=== PATIENT | male | born 1975 | race Caucasian/White ===

== ENCOUNTER 2023-11-19 12:09 | Emergency (ER) | payer MEDICAID, SELFPAY ==
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
[2023-11-19 12:25] VITALS: BP 140/80; PULSE 75; O2SAT 96
[2023-11-19 12:31] VITALS: BP 156/100; PULSE 71; RESP 16; TEMP 36.4; O2SAT 95; BMI 38.1
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
[2023-11-19 14:00] VITALS: BP 129/77; PULSE 55; RESP 14; O2SAT 93
== END 2023-11-20 07:02 | disposition home or self-care (01) ==
PROVIDERS: Emergency Provider Emergency Medicine Emergency Medical Services
DX: S09.90XA Unspecified injury of head, initial encounter (principal); S16.1XXA Strain of muscle, fascia and tendon at neck level, initial encounter; V73.6XXA Passenger on bus injured in collision with car, pick-up truck or van in traffic accident, initial encounter; M25.571 Pain in right ankle and joints of right foot; Y93.89 Activity, other specified; Y92.414 Local residential or business street as the place of occurrence of the external cause; Y99.9 Unspecified external cause status
CPT/HCPCS: 70450; 72125; 73610; 99284

== ENCOUNTER 2024-02-03 15:22 | Outpatient (REF) | payer MEDICAID, SELFPAY ==
[2024-02-03 17:10] LABS: Alanine Aminotransferase 12 U/L (0-40); Albumin Level 4.7 g/dL (3.5-5.0); Alkaline Phosphatase 94 U/L (39-117); Aspartate Amino Transferase 21 U/L (5-37); Bilirubin Direct 0.1 mg/dL (0.0-0.5); Bilirubin Total 0.3 mg/dL (0.0-1.0); Total Protein 8.4 g/dL (6.5-8.0)
[2024-02-04 04:42] LABS: HBc Num1 4.66 S/CO (0.00-0.79); HIV AB/AG Nonreactive (Nonreactive); HIV Num 1 0.05 S/CO (0.00-0.99); ~HepC Num1 14.62 S/CO (0.00-0.79); ~Hepatitis C Antibody Reactive (Nonreactive)
[2024-02-04 04:48] LABS: HBS Num1 59.09 mIU/mL (0-7.99); HBsAGNum1 0.39 S/CO (0.00-0.99); Hepatitis B Surface Antigen Negative (Negative); ~Hepatitis B Surface Antibody REACTIVE (Nonreactive)
[2024-02-04 04:50] LABS: Hepatitis A Antibody IgG REACTIVE (Nonreactive); ~Hepatitis A Antibody IgG 8.84 S/CO (0.00-0.99)
[2024-02-04 06:19] LABS: HBc Num2 4.84 S/CO
[2024-02-04 06:20] LABS: HBc Num3 4.73 S/CO; Hepatitis B Core Antibody Reactive (Nonreactive)
[2024-02-05 15:43] LABS: RPR Rapid Plasma Reagin NON-REACTIVE (NON-REACTIVE)
[2024-02-06 03:23] LABS: Hepatitis B Core Antibody IgM NON-REACTIVE (NON-REACTIVE)
[2024-02-06 10:33] LABS: HCV Log PCR <1.18 NOT DETECTED Log IU/mL (NOT DETECTED); HepC Viral Load <15 NOT DETECTED IU/mL (NOT DETECTED)
[2024-02-06 12:29] LABS: TS Negative Control Passed; TS Panel A 0; TS Panel B 0; TS Positive Control Passed; TSpotTB Negative (Negative)
== END 2024-02-03 15:23 | disposition home or self-care (01) ==
LOC: HO.HHCL 15:22
PROVIDERS: Family Medicine; Visit Provider Emergency Medicine
DX: Z86.19 Personal history of other infectious and parasitic diseases (principal); F11.20 Opioid dependence, uncomplicated
CPT/HCPCS: 36415; 80076; 86481; 86592; 86704; 86705; 86706; 86708; 86803; 87340; 87389; 87522

== ENCOUNTER 2025-04-12 13:24 | Outpatient (REF) | payer OTHER, SELFPAY ==
--- OUTSIDE RECORDS SUMMARY | 2025-04-12 13:00 | XMS_ITS | Encounter Summary ---
Author Organization [employer] Address [address] [place] [address] Care Team Providers Care Hotel Concierge Name Role Phone Sofi Arroyo MD Primary Care Provide r Reason for Visit * Reason Comments OBAT F/U Encounter Details Date Type Department Care Team (Latest Contact Info) Description 04/12/2025 1:00 PM EST Clinical Support [facility] [address], [place] [phone] Hayley Corona RN Uncomplicated opioid dependence (CMS/HCC) (HCC) (Primary Dx) Social History Tobacco Use Types Packs/Day Years Used Date Smoking Tobacco: Every Day Cigarettes Smokeless Tobacco: Never Alcohol Use Standard Drinks/Week Comments Not Currently 0 (1 standard drink = 0.6 oz pur e alcohol) Depression Answer Date Recorded Patient Health Questionnaire-9 Score 8 03/09/2025 Patient Health Questionnaire-9 Score 8 03/09/2025 Last PHQ-9: Questionnaire Data Not on file 1 05/09/2024 Housing Stability Answer Date Recorded What is your housing situation today? I do not have housing (Staying with others, in a hotel, in a intermediate, living outside on the street, on a beach, in a car, or in a park 02/03/[address] you li ve. Do you have problems with any of the following? None of the above 02/03/2023 Food Insecurity Answer Date Recorded Within the past 12 months, y ou worried that your food would run out before you got money to buy more: Never True 02/25/2023 Within the past 12 months,th e food you bought just didn't last and you didn't have enough money to get more: Never True Transportation Answer Date Recorded In the past 12 months, has l ack of transportation kept you from medical appts, meetings, work or from getting things needed for daily living? No 02/25/2023 Utilities Answer Date Recorded In the past 12 months, has t he electric, gas, oil or water company threatened to shut off services in your home? No 02/25/2023 Depression Answer Date Recorded Patient Health Questionnaire-2 Score 2 03/09/2025 Sex and Gender Information Value Date Recorded Sex Assigned at Male 07/12/2022 1:55 PM EDT Legal Sex Male 3:32 PM EST Gender Identity Male 07/12/2022 1:55 PM EDT Sexual Orientation Don't know 07/12/2022 1: 55 PM EDT documented as of this encounter Plan of Treatment Upcoming Encounters Date Type Department Care Team (Late st Contact Info) Description 04/18/2025 1:45 PM EST Telemedicine [facility] [address] [place] [id number] Sofi Arroyo MD [address] [place] [address] [phone] 07/05/2025 1:00 PM EDT Office Visit [facility] [address] [place] [phone] Destin Casey MD [address] [place] [address] [phone] Scheduled Orders Name Type Priority Associated Diagnoses Orde r Schedule Hepatitis C Antibody with Reflex to HCV, RNA, Quantitative, Real-Time PCR Lab Routine Uncomplicated opioid dependence (CMS/HCC) (HCC) Expected: 04/12/2025 (Approximate), Expires: 04/12/2026 documented as of this encounter Procedures Procedure Name Priority Date/Time Associated Diagnosis Comments POCT RIAN-14 URINE DRUG SCREEN Routine 04/12/2025 2:21 PM EST Uncomplicated opioid dependence (CMS/HCC) (HCC) documented in this encounter Results * (ABNORMAL) POCT RIAN-14 Urine Drug Screen (04/12/2025 2:21 PM EST) THC Negative Negative Cocaine Screen, Urine Negative(A) Negative Opiate Screen, Urine Negative(A) Negative Methamphetamine Screen Urine Negative Negative Amphetamine Screen, Urine Negative Negative Benzodiazepines Screen, Urine Negative Negative Barbiturate Screen, Urine Negative Negative Methadone Screen, Urine Negative Negative Buprenophine Screen, Urine Positive(A) Negative TCA, Urine Negative Negative MDMA Urine Negative Negative ng/mL Oxycodone Screen, Urine Negative Negative Fentanyl, Urine Negative(A) Negative Urine Urine specimen obtained by clean catch procedure / Unknown 04/12/2025 2:21 PM EST Destin Casey MD POINT OF CARE TEST ENTER/EDIT OR DERABLES Edited Result - Final documented in this encounter Visit Diagnoses Diagnosis Uncomplicated opioid dependence (CMS/HCC) (HCC)- Primary documented in this encounter Additional Health Concerns Assessment Noted Time PHQ-9 Depression Total Score: 8 03/09/20 1:05 PM EST documented as of this encounter Care Teams Hotel Concierge Relationship Specialty Start Date End Date Sofi Arroyo MD [address] [place] [phone] PCP - General Internal Medicine 12/01/24 documented as of this encounter
[2025-04-12 16:05] LABS: MANUAL DIFF FLAG NO
[2025-04-12 16:15] LABS: Hematocrit 41.6 % (42.0-52.0); Hemoglobin 14.2 g/dl (14.0-18.0); Imm Gran Abs Auto 0.04 X10*3/uL (0.00-0.03); Imm Gran Pct Auto 0.4 % (0.0-0.4); Lymphocytes Absolute Auto 2.6 X10*3/uL (1.2-4.9); Mean Corpuscular HGB Conc 34.1 g/dl (31.0-36.0); Mean Corpuscular Hemoglobin 29.5 pg (27.0-33.0); Mean Corpuscular Volume 86.3 fL (80.0-98.0); NRBC Abs Auto 0.000 X10*3/uL (0.0-0.012); NRBC Pct Auto 0.0 /100WBC (0.0-0.2); Platelet Count 244 X10*3/uL (160-400); Red Blood Count 4.82 X10*6/uL (4.60-5.80); White Blood Count 10.6 X10*3/uL (4.8-10.8)
[2025-04-12 16:50] LABS: Alanine Aminotransferase 20 U/L (0-40); Albumin Level 4.8 g/dL (3.5-5.0); Alkaline Phosphatase 76 U/L (39-117); Anion Gap 11 (12-20); Aspartate Amino Transferase 39 U/L (5-37); Blood Urea Nitrogen 20 mg/dL (9-16); Calcium 9.4 mg/dL (8.4-10.2); Carbon Dioxide 28 mmol/L (22-29); Chloride 103 mmol/L (96-108); Cholesterol 116 mg/dL (<200); Estimated Glomerular Filt Rate > 60; HDL Cholesterol 39 mg/dL (>40); Potassium 3.9 mmol/L (3.3-5.1); Sodium 138 mmol/L (135-145); Total Protein 7.6 g/dL (6.5-8.0); Triglycerides 89 mg/dL (<150)
--- OUTSIDE RECORDS SUMMARY | 2025-04-12 17:29 | XMS_ITS | Clinical Summary ---
Author Organization [employer] Address [address] [facility] [address] [place] [address] Care Team Providers Care Electronic Component Processor Name Role Phone Sofi Arroyo MD Primary Care Provide r Allergies No known active allergies Medications * This document contains information received from the source organization and may not represent a complete record from that organization. nicotine (Nicoderm CQ) 14 MG/24HR patch Place 1 patch on the skin 1 (one) time each day at the same time. 42 patch 1 01/19/20 25 Active nicotine (Nicoderm CQ) 7 MG/24HR patch Place 1 patch on the skin 1 (one) time each day at the same time. 14 patch 1 01/19/20 25 Active nicotine polacrilex (Commit) 4 MG lozenge Dissolve 1 lozenge (4 mg) in the mouth every 2 (two) hours if needed for smoking cessation. 100 lozenge 1 01/19/20 25 Active Suboxone 8-2 MG SL filmIndication s:Opioid type dependence, continuous (CMS/HCC) (HCC) Place 1 Film under the tongue 3 times daily. 84 Film 2 5 2:33 PM EST 04/05/20 25 026 Active Suboxone 8-2 MG SL filmIndication s:Opioid type dependence, continuous (CMS/HCC) (HCC) Place 1 Film under the tongue 3 times daily. 84 Film 2 5 4:26 PM EST 01/11/20 25 025 Discontinued(Re order (will not trigger notification to Pharmacy)) Active Problems Problem Noted Date Diagnosed Date Cigarette smoker 03/04/2025 History of substance abuse (CMS/HCC) 03/04/2025 History of hepatitis B 03/04/2025 Current mild episode of vita r depressive disorder without prior episode 02/10/2025 Assessment & Plan (02/10/2025 4:30 PM EDT): - Mild depressive symptoms present, patient does not wish to start medication at this time. - Referred to therapist for counseling. Therapist to contact patient after 3:00 PM for initial session. Vitamin D deficiency 02/10/2025 Assessment & Plan (02/10/2025 4:30 PM EDT): - Risk of vitamin D deficiency due to limited sunlight exposure in winter. - Recommended vitamin D3 supplementation, 1000 IU daily during winter. Will check vitamin D levels with upcoming blood tests and review results together by phone. Anxiety 02/03/2024 Edentulous 02/03/2024 Opioid dependence 11/05/2023 Assessment & Plan (02/10/2025 4:29 PM EDT): - Opioid dependence in remission, no current use for 3 years. - Ordered comprehensive blood tests to monitor overall health. Assessment & Plan (12/03/2023 10:48 AM EDT): - stage of change: maintenance stage - Utox review: pos bup - Overdose risk: high, risk factors include previously using mixed drugs intravenously, depression, and history of OD - Continue current recovery support - Continue current recovery effort - Reviewed harm reduction and overdose prevention Assessment & Plan (11/05/2023 11:07 AM EDT): - stage of change: maintenance stage - Utox review: pos bup - Overdose risk: high, risk factors include previously using mixed drugs intravenously, depression, and history of OD - Continue current recovery support - Continue current recovery effort - Reviewed harm reduction and overdose prevention Tobacco use disorder 11/05/2023 Assessment & Plan (02/10/2025 4:30 PM EDT): - Tobacco use disorder present, patient interested in cessation and has cessation medication available but not yet started. - Encouraged smoking cessation. Will follow up on progress. History of hepatitis C 11/05/2023 Assessment & Plan (11/05/2023 11:03 AM EDT): - treated in 2021 - most recent Hep C viral load negative in May 2023 Encounters * This document contains information received from the source organization and may not represent a complete record from that organization. Date Type Department Care Team Description 04/12/2025 1:00 PM EST Clinical Support [address] [address] Hayley Corona RN Uncomplicated opioid dependence (CMS/HCC) (HCC) (Primary Dx) 04/05/[address] [address] Hayley Corona RN Opioid type dependence, continuous (CMS/HCC) (HCC) 04/05/[address] [address] Destin Casey MD Opioid type dependence, continuous (CMS/HCC) (HCC) 02/10/2025 1:15 PM EDT Office Visit [address] [address] Sofi Arroyo MD Screening for colon cancer (Primary Dx); Uncomplicated opioid dependence (CMS/HCC) (HCC); Tobacco use disorder; Anxiety; Current mild episode of major depressive disorder without prior episode (CMS/HCC); Vitamin D deficiency 02/10/2025 Travel 02/09/[address] [address] Sofi Arroyo MD Chart Prep 02/02/2025 Patient Outreach [address] [address] Sofi Arroyo MD Pre-visit Planning ((Unable to reach for PVP screening, LVM) to be completed in office ) 01/18/2025 1:00 PM EDT Office Visit [address] [address] Destin Casey MD Uncomplicated opioid dependence (CMS/HCC) (Primary Dx); Tobacco use disorder 01/18/2025 Travel from Last 3 Months Family History Medical History Relation Name Comments HIV Father Diabetes type II Maternal Grandfather HIV Mother Relation Name Status Comments Father Maternal Grandfather Mother Social History Tobacco Use Types Packs/Day Years Used Date Smoking Tobacco: Every Day Cigarettes Smokeless Tobacco: Never Tobacco Cessation:Ready to Q uit: Not Asked; Counseling Given: Not Answered Alcohol Use Standard Drinks/Week Comments Not Currently [...] with others, in a hotel, in a snf, living outside on the street, on a [...] Don't know 07/12/2022 1: 55 PM EDT Last Filed Vital Signs Vital Sign Reading Time Taken Comments Blood Pressure 114/74 02/10/2025 1:06 PM EDT Pulse 76 02/10/2025 1:06 PM EDT Temperature 36.3 C (97.4 F) 02/10/2025 1:06 PM EDT Respiratory Rate 15 02/10/2025 1:06 PM EDT Oxygen Saturation 96% 02/10/2025 1:06 PM EDT Inhaled Oxygen Concentration - - Weight 73.9 kg (163 lb) 02/10/2025 1:06 PM EDT Height 180.3 cm (5' 11 ) 02/10/2025 1:06 PM EDT Body Mass Index 22.73 02/10/2025 1:06 PM EDT Plan of Treatment Upcoming Encounters Date Type Department Care Team (Late st Contact Info) Description 04/18/2025 1:45 PM EST Telemedicine [facility] [address] [place] [phone] Sofi Arroyo MD [address] [place], [place] [phone] 07/05/2025 1:00 PM EDT Office Visit [facility] [address] [place] [address] [phone] Destin Casey MD [address] [place], [place] [phone] Health Maintenance Due Date Last Done Comments CT Colonography 1975 Colonoscopy 1975 FIT 1975 Sigmoidoscopy 1975 Disability Screening 1975 Alcohol/Substance Use Screening 1987 Family Planning (PISQ) 06/30/1990 DTaP/Tdap/Td Vaccines (1 - Tdap) 06/30/1994 Pneumococcal Vaccine: Pediatrics (0 to 5 Years) and At-Risk Patients (6 to 49) Years (1 of 2 - PCV) 06/30/1994 SDOH Screening 07/13/2023 07/12/2022 COVID-19 Vaccine (1 - 2024-2 6 season) 2024 Influenza Vaccine (#1) 2024 Zoster Vaccines (1 of 2) 06/30/2025 Tobacco Screening 02/10/2026 02/10/2025 FOBT 02/24/2026 02/24/2025 Depression Screening 03/09/2026 03/09/2025, 03/09/2025 Colorectal Cancer Screening 02/25/2028 FIT DNA/Cologuard 02/25/2028 02/24/2025 Lipid Panel 04/12/2030 04/12/2025, 07/16/2022 RSV Patients and Patients Aged 60 years or older (1 - 1-dose 75+ series) 06/30/2050 HIV Screening Completed 02/03/2024, 07/16/2022 HIB Vaccines Aged Out No longer eligi ble based on patient's age to complete this topic HPV Vaccines Aged Out No longer eligi ble based on patient's age to complete this topic Hepatitis A Vaccines Discontinued Hepatitis B Vaccines Discontinued IPV Vaccines Aged Out No longer eligi ble based on patient's age to complete this topic Meningococcal B Vaccine Aged Out No l onger eligible based on patient's age to complete this topic Meningococcal Vaccine Aged Out No tiffanie peña eligible based on patient's age to complete this topic RSV under 20 months Aged Out No longe r eligible based on patient's age to complete this topic Rotavirus Vaccines Aged Out No longer eligible based on patient's age to complete this topic Procedures Procedure Name Priority Date/Time Associated Diagnosis Comments POCT RIAN-14 URINE DRUG SCREEN Routine 04/12/2025 2:21 PM EST Uncomplicated opioid dependence (CMS/HCC) (HCC) TSH W/REFLEX TO FT4 Routine 04/12/2025 1 :34 PM EST Uncomplicated opioid dependence (CMS/HCC) (HCC) Anxiety VITAMIN D,25-OH,TOTAL,IA Routine 04/12/2025 1:34 PM EST Uncomplicated opioid dependence (CMS/HCC) (HCC) LIPID PANEL, STANDARD Routine 04/12/2025 1:34 PM EST Uncomplicated opioid dependence (CMS/HCC) (HCC) HEMOGLOBIN A1C Routine 04/12/2025 1:34 PM EST Uncomplicated opioid dependence (CMS/HCC) (HCC) COMPREHENSIVE METABOLIC PANEL Routine 04/12/2025 1:34 PM EST Uncomplicated opioid dependence (CMS/HCC) (HCC) CBC WITH AUTO DIFFERENTIAL Routine 04/12/2025 1:34 PM EST Uncomplicated opioid dependence (CMS/HCC) (HCC) LAB COLOGUARD COLON CANCER SCREEN Routine 02/24/2025 3:50 AM EDT Screening for colon cancer HIV 1/2 ANTIGEN/ANTIBODY, FOURTH GENERATION W/RFL Routine 02/03/2024 3:23 PM EDT Opioid type dependence, continuous (CMS/HCC) from Last 3 Months or Most Recently Relevant to Health Maintenance Results * (ABNORMAL) POCT RIAN-14 Urine Drug [...] ENTER/EDIT OR DERABLES Edited Result - Final * Vitamin D, 25-Hydroxy, Total, Immunoassay (04/12/2025 1:34 PM EST) Vitamin D 25-OH Total 37.4 >30 ng/mL [facility] Comment: Health Based Reference Values*< 20 ng/mL Xxzlbjiab54-41 ng/mL Insufficient> 30 ng/mL Sufficient*Reese SHIPMAN. N Engl J Med. 2007;357:266-280There is no well-established upper level of normal vitamin Dlevels. Some laboratories use 50 ng/mL as an upper limit ofnormal. However, toxicity is patient-dependent and may occurat any level. Careful correlation with the patient'spresentation is necessary and, if there is concern forvitamin D toxicity, treatment should be consideredirrespective of the serum level.Care must be taken in interpreting Vitamin D results fromdifferent laboratories and methodologies. Published datademonstrated that results from patients undergoinghemodialysis may show a negative bias when tested withvarious automated 25-OH vitamin D assays when compared toLC-MS/MS.When testing samples from patients whose predominant form ofVitamin D is Vitamin D2, such as patients receiving VitaminD2 supplementation, results that are subtherapeutic shouldbe confirmed with another method such as LC-MS/MS. Blood Venous blood specimen / Unknown 04/12/2025 1:34 PM EST 04/12/2025 4:01 PM EST us Sofi Cheung MD LAB BLOOD ORDERABLES Final Result Performing Organization Address [facility]/ZIP Co de Phone Number [facility] [address] [place] [phone] * TSH with Reflex to Free T4 (04/12/2025 1:34 PM EST) TSH reflex Free T4 2.05 0.32 - 4.0 uIU/mL [facility] Blood Venous blood specimen / Unknown 04/12/2025 1:34 PM EST 04/12/2025 4:01 PM EST us Sofi Cheung MD LAB BLOOD ORDERABLES Final Result Performing Organization Address [facility]/ZIP Co de Phone Number [facility] [address] [place] [phone] * (ABNORMAL) CBC auto differential (04/12/2025 1:34 PM EST) White Blood Count 10.6 4.8 - 10.8 X10*3/uL [facility] Red Blood Count 4.82 4.60 - 5.80 X10*6/uL [facility] Hemoglobin 14.2 14.0 - 18.0 g/dl [facility] Hematocrit 41.6(L) 42.0 - 52.0 % [facility] Mean Corpuscular Volume 86.3 80.0 - 98.0 fL [facility] Mean Corpuscular Hemoglobin 29.5 27.0 - 33.0 pg [facility] Mean Corpuscular HGB Conc 34.1 31.0 - 36.0 g/dl [facility] Red Cell Distribution Width 13.0 11.0 - 16.0 % [facility] Platelet Count 244 160 - 400 X10*3/uL [facility] Mean Platelet Volume 10.8 9.4 - 12.4 fL [facility] Neutrophils Percent Auto 67.7 45 - 73 % [facility] Imm Gran Pct Auto 0.4 0.0 - 0.4 % [facility] Lymphocytes Percent Auto 24.5 20 - 40 % [facility] Monocytes Percent Auto 4.4 2 - 11 % [facility] Eosinophils Percent Auto 2.2 0 - 4 % [facility] Basophils Percent Auto 0.8 0 - 2 % [facility] NRBC Pct Auto 0.0 0.0 - 0.2 /100WBC [facility] Neutrophils Absolute Auto 7.2 2.0 - 8.3 x10*3/uL [facility] Imm Gran Abs Auto 0.04(H) 0.00 - 0.03 X10*3/uL [facility] Lymphocytes Absolute Auto 2.6 1.2 - 4.9 X10*3/uL [facility] Monocytes Absolute Auto 0.5 0.1 - 1.2 X10*3/uL [facility] Eosinophils Absolute Auto 0.2 0.0 - 0.4 X10*3/uL [facility] Basophils Absolute Auto 0.1 0.0 - 0.2 X10*3/uL [facility] NRBC Abs Auto 0.000 0.0 - 0.012 X10*3/uL [facility] Blood Venous blood specimen / Unknown 04/12/2025 1:34 PM EST 04/12/2025 4:01 PM EST us Sofi Cheung MD LAB BLOOD ORDERABLES Final Result [facility] [address] [place] [phone] * Hemoglobin A1c (04/12/2025 1:34 PM EST) Hemoglobin A1c 5.4 <6.0 % [facility] Comment:Hemoglobin A1C Refer ence Range Adults: 4.8 - 6.0 % Non diabetic: < 6.0 % Goal: < 7.0 %Additional Action Suggested: > 8.0 %Note: Hemoglobin A1c results are invalid for patients with abnormal amounts of HbF. Blood transfusions may impact the HbA1c concentration in the patient sample. Estimated Average Glucose 108 mg/dL [facility] Comment:eAG = Estimated ave rage glucose which is %A1C expressed asaverage glucose, using the formula of the F6A-BydocwzFaxzezv Glucose study (ADAG), Diabetes Care, Vol.31,#8,Nov. 2007 Blood Venous blood specimen / Unknown 04/12/2025 1:34 PM EST 04/12/2025 4:01 PM EST us Sofi Cheung MD LAB BLOOD ORDERABLES Final Result [facility] [address] [place] [phone] * (ABNORMAL) Lipid Panel, Standard (04/12/2025 1:34 PM EST) Triglycerides 89 <150 mg/dL [facility] Comment:Desirable Triglyceri de: less than 150 mg/dLBorderline High Triglyceride 150-199 mg/dLHigh Triglyceride: 200-499 mg/dLVery High Triglyceride: greater than or equal to 5OO mg/dL Cholesterol 116 <200 mg/dL [facility] Comment:Desirable Cholestero l: less than 200 mg/dLBorderline High Cholesterol: 200-239 mg/dLHigh Cholesterol: greater than 239 mg/dL LDL Cholesterol Calculated 60 <100 mg/dL [facility] Comment:Desirable LDL: less than 100 mg/dLNear Optimal/Above Optimal LDL: 110- 129 mg/dLBorderline High LDL: 130-159 mg/dLHigh LDL: 160-189 mg/dLVery High LDL: greater than or equal to 190 mg/dL HDL Cholesterol 39(L) >40 mg/dL [facility] Comment:Desirable HDL: great er than 40 mg/dL Note: This HDL assay may give artificially low results in patients with liver disease. Blood Venous blood specimen / Unknown 04/12/2025 1:34 PM EST 04/12/2025 4:01 PM EST Sofi Cheung MD LAB BLOOD ORDERABLES Final Result [facility] [address] [place] [phone] * (ABNORMAL) Comprehensive Metabolic Panel (04/12/2025 1:34 PM EST) Sodium 138 135 - 145 mmol/L [facility] Potassium 3.9 3.3 - 5.1 mmol/L [facility] Chloride 103 96 - 108 mmol/L [facility] Carbon Dioxide 28 22 - 29 mmol/L [facility] Anion Gap 11(L) 12 - 20 [facility] Urea Nitrogen (BUN) 20(H) 9 - 16 mg/dL [facility] Creatinine, Serum 0.93 0.5 - 1.4 mg/dL [facility] Estimated Glomerular Filt Rate >60 [facility] Comment:Chronic Kidney Disea se: Estimated GFR < 60 mL/min/1.20l3Mmtemc Kidney Disease: Estimated GFR < 15 mL/min/1.73m2 Glucose 92 60 - 115 mg/dL [facility] Calcium 9.4 8.4 - 10.2 mg/dL [facility] Bilirubin, Total 0.2 0.0 - 1.0 mg/dL [facility] Aspartate Amino Transferase 39(H) 5 - 37 U/L [facility] Alanine Aminotransferase 20 0 - 40 U/L [facility] Total Protein 7.6 6.5 - 8.0 g/dL [facility] Albumin Level 4.8 3.5 - 5.0 g/dL [facility] Alkaline Phosphatase 76 39 - 117 U/L [facility] Blood Venous blood specimen / Unknown 04/12/2025 1:34 PM EST 04/12/2025 4:01 PM EST Sofi Cheung MD LAB BLOOD ORDERABLES Final Result [facility] [address] [place] [phone] * Cologuard?? colon cancer screening (02/24/2025 3:50 AM EDT) Cologuard Result Negative Negative 03/01/20 8:50 PM EST [facility] (CLIA #:[id number]) Comment: The Cologuard (TM) test was performed on this specimen. NEGATIVE TEST RESULT. A negative Cologuard result indicates a low likelihood that a colorectal cancer (CRC) or advanced adenoma (adenomatous polyps with more advanced pre-malignant features) is present. The chance that a person with a negative Cologuard test has a colorectal cancer is less than 1 in 1500 (negative predictive value >99.9%) or has an advanced adenoma is less than 5.3% (negative predictive value 94.7%). These data are based on a prospective cross-sectional study of 10,000 individuals at average risk for colorectal cancer who were screened with both Cologuard and colonoscopy. (Manuelito Martinez. et al, N Engl J Med 2014;370(14):1286- 1297) The normal value (reference range) for this assay is negative. COLOGUARD RE-SCREENING RECOMMENDATION: Periodic colorectal cancer screening is an important part of preventive healthcare for asymptomatic individuals at average risk for colorectal cancer. Following a negative Cologuard result, the [place] [employer] and U.S. Multi-Society Task Force screening guidelines recommend a Cologuard re-screening interval of 3 years. References: [place] [employer] Guideline for Colorectal Cancer Screening: https://www.cancer.org/cancer/miofz-rtlxuy-nvyzhg/zhsbdbwnl-vxactpmia-xriobkc/ac s-rec ommendations.html.; Fabrizio DK, Mary STEVENSON, Paul STEELE, Colorectal Cancer Screening: Recommendations for Physicians and Patients from the U.S. Multi-Society Task Force on Colorectal Cancer Screening , Am J Gastroenterology 2017; 112:9758-6767. TEST DESCRIPTION: Composite algorithmic analysis of stool DNA-biomarkers with hemoglobin immunoassay. Quantitative values of individual biomarkers are not reportable and are not associated with individual biomarker result reference ranges. Cologuard is intended for colorectal cancer screening of adults of either sex, 45 years or older, who are at average-risk for colorectal cancer (CRC). Cologuard has been approved for use by the U.S. FDA. The performance of Cologuard was established in a cross sectional study of average-risk adults aged 50-84. Cologuard performance in patients ages 45 to 49 years was estimated by sub-group analysis of near-age groups. Colonoscopies performed for a positive result may find as the most clinically significant lesion: colorectal cancer [4.0%], advanced adenoma (including sessile serrated polyps greater than or equal to 1cm diameter) [20%] or non- advanced adenoma [31%]; or no colorectal neoplasia [45%]. These estimates are derived from a prospective cross-sectional screening study of 10,000 individuals at average risk for colorectal cancer who were screened with both Cologuard and colonoscopy. (Manuelito Golden et al, N Engl J Med 2014;370(14):3021-5293.) Cologuard may produce a false negative or false positive result (no colorectal cancer or precancerous polyp present at colonoscopy follow up). A negative Cologuard test result does not guarantee the absence of CRC or advanced adenoma (pre-cancer). The current Cologuard screening interval is every 3 years. ([place] [employer] and U.S. Multi-Society Task Force). Cologuard performance data in a 10,000 patient pivotal study using colonoscopy as the reference method can be accessed at the following location: www.[employer]/results. Additional description of the Cologuard test process, warnings and precautions can be found at www.[employer].com. Stool specimen (specimen) 02/24/2025 3:50 AM EDT 02/25/2025 1:50 PM EDT Sofi Cheung MD LAB MOLECULAR DIAGNOS TICS ORDERABLES Final Result Performing Organization Address [facility] Co de Phone Number [facility] (CLIA #:[id number]) [phone] [phone], * HIV-1/2 Antigen and Antibodies, Fourth Generation, with Reflexes (02/03/2024 3:23 PM EDT) [facility] HIV AB/AG Nonreactive Nonreactive [facility] Comment:HIV-1 p24 Ag and/or HIV-1/HIV-2 Ab not detected.A test result that is nonreactive does not exclude thepossibility of exposure to or infection with HIV-1 and/orHIV-2. Nonreactive results in this assay for individualswith prior exposure to HIV-1 and/or HIV-2 may be due toantigen and antibody levels that are below the limit ofdetection of this assay.The Cell[employer] HIV Ag/Ab Combo assay result andsupplemental assay results should be interpreted inconjunction with the patient's clinical presentation,history and other laboratory results. If the results areinconsistent with clinical evidence, additional testing issuggested to confirm the result. Blood Venous blood specimen / Unknown 02/03/2024 3:23 PM EDT 02/03/2024 4:14 PM EDT Destin Casey MD LAB BLOOD ORDERABLES Final Resul t Performing Organization Address [facility] Co de Phone Number [facility] [address] [place] [phone] from Last 3 Months or Most Recently Relevant to Health Maintenance Insurance [employer] 3 Care Teams Electronic Component Processor Relationship Specialty Start Date End Date Sofi Arroyo MD [address] [place] [phone] PCP - General Internal Medicine 12/01/24
--- OUTSIDE RECORDS SUMMARY | 2025-04-12 17:29 | XMS_ITS | Encounter Summary ---
Author Organization [employer] Address [address] [facility] [address] [place] [address] Care Team Providers Care Section Leader And Machine Setter Name Role Phone Sofi Arroyo MD Primary Care Provide r Reason for Visit * Reason Comments Med Refill Encounter Details Date Type Department Care Team (Late st Contact Info) Description 04/05/2025 Refill [facility] [address] [place], [place] [phone] Destin Casey MD [address] [place] [address] Opioid type dependence, continuous (CMS/HCC) ([facility]) Social History Tobacco Use Types Packs/Day Years [...] with others, in a hotel, in a long-term, living outside on the street, on a [...] Info) Description 04/18/2025 1:45 PM EST Telemedicine [facility] [address] [place] [phone] Sofi Arroyo MD [address] [place] [phone] 07/05/2025 1:00 PM EDT Office Visit [facility] [address] [place] [address] [phone] Destin Casey MD [address] [place] [phone] documented as of this encounter Visit Diagnoses Diagnosis Opioid type dependence, continuous (CMS/HCC) (HCC) Opioid type dependence, continuous documented in this encounter Additional Health Concerns Assessment Noted Time PHQ-9 Depression Total Score: 8 03/09/20 25 1:05 PM EST documented as of this encounter Care Teams Section Leader And Machine Setter Relationship Specialty Start Date End Date Sofi Arroyo MD [address] [place] [address] [phone] PCP - General Internal Medicine 12/01/24 documented as of this encounter
--- OUTSIDE RECORDS SUMMARY | 2025-04-12 17:29 | XMS_ITS | Patient Health Record ---
Author Organization [facility] Address [address] [place] [address] Care Team Providers Care Exhaust Equipment Operator Name Role Phone Reinaldo Gonzáles Primary Care Provider [phone] [phone] Reason For Referral No Information Plan Of Treatment No Information Insurance Providers Payer Name Payer Address Payer Phone Subscriber Number Group Number Insured Name Patient Relationship to Insured Coverage Start Date Coverage End Date [place] Standard [address] [place] [address] [id number] Héctor Yen Self - patient is the insured 4
[2025-04-13 04:42] LABS: HIV Num 1 0.31 S/CO (0.00-0.99)
[2025-04-13 04:46] LABS: ~HepC Num1 14.86 S/CO (0.00-0.79); ~Hepatitis C Antibody Reactive (Nonreactive)
== END 2025-04-12 13:25 | disposition home or self-care (01) ==
LOC: HO.HHCL 13:24
PROVIDERS: Absent Provider Emergency Medicine; PCP Internal Medicine; Visit Provider Internal Medicine
DX: Z11.4 Encounter for screening for human immunodeficiency virus [HIV] (principal); Z11.59 Encounter for screening for other viral diseases; F11.20 Opioid dependence, uncomplicated; F41.9 Anxiety disorder, unspecified
CPT/HCPCS: 36415; 80053; 80061; 82306; 83036; 84443; 85025; 86803; 87389; 87522